=== PATIENT | male | born 1990 | race Caucasian/White ===

== ENCOUNTER 2019-07-03 11:29 | Emergency (ER) | payer OTHER ==
[~2019-07-03] VITALS: Ht 193 cm; Wt 59.9 kg
[2019-07-03] MEDS ORDERED: PROVENTIL HFA6.7 GM INH (14:37)
[2019-07-03] MEDS ORDERED: DOXYCYCLINE100 M3 PO (14:37)
[2019-07-03] MEDS ORDERED: TESSALON PERLE100 M1 PO (14:37)
[2019-07-03] MEDS ORDERED: PREDNISONE20 M1 PO (14:37)
[2019-07-03] MEDS ORDERED: VENTOLIN 02.5 MG/3 M INH (14:42)
== END 2019-07-03 14:45 | disposition home or self-care (01) ==
LOC: ED 11:29
DX: J40 Bronchitis, not specified as acute or chronic (principal); R11.2 Nausea with vomiting, unspecified; F17.200 Nicotine dependence, unspecified, uncomplicated